=== PATIENT | male | born 2000 | race Caucasian/White ===

== ENCOUNTER 2023-12-16 13:19 | Emergency (ER) | payer BC, SELFPAY ==
--- NOTE | 2023-12-16 13:26 | ED.MALEGU ---
HPI - Male Genitourinary General Chief complaint: Urogenital-Male Stated complaint: UTI Time Seen by Provider: 12/16/23 13:28 Source: patient, RN notes reviewed and old records reviewed Mode of arrival: ambulatory Limitations: no limitations History of Present Illness HPI Narrative: 23-year-old male presents to the [facility] with concerns for a UTI. Patient reports bladder pain when he urinates, no burning, urgency or frequency with urination. Denies being sexually active, no concern for STDs Denies fevers, nausea, vomiting Presents with his father Has a history of acid reflux Onset (ago): day(s) Related Data Sexually active: No Home Medications Medication Instructions Recorded Confirmed pantoprazole 40 mg tablet,delayed 40 mg PO DAILY 12/16/23 12/16/23 release Allergies Allergy/AdvReac Type Severity Reaction Status Date / Time amoxicillin Allergy Intermediate Vomiting Verified 12/16/23 13:40 EYE DROPS Allergy Intermediate HIVES Uncoded 12/16/23 13:26 Review of Systems Review of Systems: All systems reviewed & are unremarkable except as noted in HPI and below Constitutional: Constitutional: Reports no additional constitutional complaints Eyes: Eyes: Reports no additional eye complaints ENT: Reports system reviewed and no additional complaints, except as documented Cardiovascular: Cardiovascular: Reports no additional cardiovascular complaints, Denies chest pain and Denies dyspnea Respiratory: Respiratory: Reports no additional respiratory complaints, Denies chest congestion, Denies cough and Denies dyspnea Gastrointestinal: Gastrointestinal: Reports no additional gastrointestinal complaints, Denies abdominal pain, Denies nausea and Denies vomiting Genitourinary: Genitourinary: Reports as per HPI Musculoskeletal: Musculoskeletal: Reports no additional musculoskeletal complaints Integumentary/Breasts: Skin/Breast: Reports system reviewed and no additional complaints, except as docu Neurologic: Reports system reviewed and no additional complaints, except as documented Psychiatric: Psychiatric: Reports no additional psychiatric complaints Allergic/Immunologic: Allergic/Immunologic: Reports no additional allergic/immunologic complaints [facility] Surgical History Surgical History Myringotomy tube status Family History Family History Father Depression Anxiety Alcohol abuse Grandparent Alcohol abuse Cancer Cerebrovascular accident Social History Social History Social History: caffeine coffee, tea and soda 1 cup per day Smoking status: Former smoker Alcohol intake: former Alcohol use details: previously--every 2 to 3 months have 3 to 5 shots Substance use: current Substance use type: marijuana Other substance usage details: edibles Last use: monday Lack of Transportation: No Lack of Food: Never True Current Housing: I Have Housing Concerned About Future Housing: No Difficulty Paying Gas/Electric Bills: No Difficulty Paying for Meds: No Currently Unemployed: YES Education: High School Diploma/GED Difficulty w/ Childcare or Family Care: No Living arrangements: with family Comments At the time of my signature, I reviewed and agree with the nursing past medical, surgical, social, and family history. There is no relevant family history pertinent to the patient complaint. Exam Const: General: cooperative, healthy appearing, comfortable, no acute distress, well developed, alert and well nourished Nutritional Appearance: well nourished Orientation/consciousness: patient oriented x3 Limitations: no limitations HENMT: Head: normal to inspection Ears: hearing grossly normal bilaterally and external ears normal Face/Nose/Sinus: Normal external nose present, Normal nares present, Normal nasal mucous m
[2023-12-16 13:28] VITALS: BP 128/80; PULSE 69; RESP 16; TEMP 37.1; O2SAT 100
[2023-12-16 13:50] LABS: EDUAAPPEAR Clear; EDUABILI Negative; EDUABLOOD Negative; EDUACOLOR1 Light/Pale; EDUAGLUCOSE Negative; EDUAKETONE Negative; EDUALEUKO Negative; EDUANITRATE Negative; EDUAPH 7.5; EDUAPROTEIN Negative; EDUASPGRAVITY 1.015; EDUAUROBILI 0.2
== END 2023-12-16 14:19 | disposition home or self-care (01) ==
PROVIDERS: Emergency Provider Nurse Practitioner; PCP Student in an Organized Health Care Education/Training Program
DX: R39.89 Other symptoms and signs involving the genitourinary system (principal); Z87.891 Personal history of nicotine dependence; F12.90 Cannabis use, unspecified, uncomplicated
CPT/HCPCS: 81003; 87086; 99213; G0463

== ENCOUNTER 2024-05-05 08:32 | Emergency (ER) | payer BC, SELFPAY ==
--- NOTE | 2024-05-05 08:36 | ED.GENADULT ---
HPI - General Adult General Chief complaint: Ear Stated complaint: Both Ears Irritation Time Seen by Provider: 05/05/24 08:43 Source: patient, RN notes reviewed and old records reviewed Mode of arrival: ambulatory Limitations: no limitations History of Present Illness HPI narrative: 23-year-old male presents to the [facility] with 5 day history of ear discomfort, ringing of his ears. Has taken Tylenol. No other treatment prior to arrival Related Data Home Medications Medication Instructions Recorded Confirmed pantoprazole 40 mg tablet,delayed 40 mg PO DAILY 12/16/23 05/05/24 release Allergies Allergy/AdvReac Type Severity Reaction Status Date / Time amoxicillin Allergy Intermediate Vomiting Verified 05/05/24 08:39 EYE DROPS Allergy Intermediate HIVES Uncoded 05/05/24 08:39 Review of Systems Review of Systems: All systems reviewed & are unremarkable except as noted in HPI and below Constitutional: Constitutional: Reports no additional constitutional complaints ENT: Reports as per HPI and Reports otalgia Cardiovascular: Cardiovascular: Reports no additional cardiovascular complaints, Denies chest pain and Denies dyspnea Respiratory: Respiratory: Reports no additional respiratory complaints, Denies chest congestion, Denies cough and Denies dyspnea Gastrointestinal: Gastrointestinal: Reports no additional gastrointestinal complaints, Denies abdominal pain, Denies nausea and Denies vomiting Musculoskeletal: Musculoskeletal: Reports no additional musculoskeletal complaints Integumentary/Breasts: Skin/Breast: Reports system reviewed and no additional complaints, except as docu PMFSH Surgical History Surgical History Myringotomy tube status Family History Family History Father Depression Anxiety Alcohol abuse Grandparent Alcohol abuse Cancer Cerebrovascular accident Social History Social History Social History: caffeine coffee, tea and soda 1 cup per day Smoking status: Former smoker Alcohol intake: former Alcohol use details: previously--every 2 to 3 months have 3 to 5 shots Substance use: current Substance use type: marijuana Other substance usage details: edibles Last use: monday Lack of Transportation: No Lack of Food: Never True Current Housing: I Have Housing Concerned About Future Housing: No Difficulty Paying Gas/Electric Bills: No Difficulty Paying for Meds: No Currently Unemployed: YES Education: High School Diploma/GED Difficulty w/ Childcare or Family Care: No Living arrangements: with family Comments At the time of my signature, I reviewed and agree with the nursing past medical, surgical, social, and family history. There is no relevant family history pertinent to the patient complaint. Exam Const: General: cooperative, healthy appearing, comfortable, no acute distress, well developed, alert and well nourished Nutritional Appearance: well nourished Orientation/consciousness: patient oriented x3 Limitations: no limitations HENMT: Head: normal to inspection Ears: hearing grossly normal bilaterally, external ears normal and TM abnormal bulging on the right, wth effusion serous (right TM slightly pink in color ) bilateral and scarred bilateral Face/Nose/Sinus: Normal external nose present, normal facial exam and face symmetric Face and sinus: normal facial exam and face symmetric Mouth: Yes Normal oral and palatal mucosa present, Yes lip normal and Yes tongue normal Throat: posterior oropharynx normal, uvula midline and no uvular edema Eyes: General: appearance normal, both eyes and all related structures Alignment and Position: alignment normal Periorbital: periorbital findings normal Neck: Neck: normal visual inspection, full ROM, no lymphadenopathy and no meningeal signs Chest: Chest palpation & inspection: normal inspection of the chest Resp: Effort & Inspection: normal respiratory effort and able to speak in complete sentences Cardio: Rate: regular rate Skin: General skin exam: normal color and no rashes or lesions noted Lesions: no lesions Rashes: no rashes Wounds: no wounds Neuro: General: patient oriented x3, gait normal, tone normal, moves all extremities and no meningeal signs Cognition (Neuro): normal cognition Speech: normal speech Gait exam (Neuro): Normal gait present Extrem: General: normal to inspection, full ROM, capillary refill normal and normal gait Psych: Appearance: grossly normal and well kempt Mental Status: mental status grossly normal Speech and movement: Normal speech and movement present and Clear speech present Affect: normal affect Attitude: cooperative Course Course Level of Care: Express Care Visit Vital Signs Vital signs: Vital Signs Temperature 98.5 F 05/05/24 08:45 Pulse Rate 78 05/05/24 08:45 Respiratory Rate 18 05/05/24 08:45 Blood Pressure 126/81 05/05/24 08:45 Pulse Oximetry 99 05/05/24 08:45 Oxygen Delivery Room Air 05/05/24 08:45 Temperature 98.5 F 05/05/24 08:45 Pulse Rate 78 05/05/24 08:45 Respiratory Rate 18 05/05/24 08:45 Blood Pressure 126/81 05/05/24 08:45 Pulse Oximetry 99 05/05/24 08:45 Oxygen Delivery Room Air 05/05/24 08:45 Reviewed Medical Decision Making MDM Narrative Medical decision making narrative: Patient sitting comfortably in exam room. Nontoxic, vitals stable. Patient in no acute distress Patient presents for 5 day history of bilateral ear discomfort Clear fluid noted on left, slightly bulging. Right pink to clear fluid noted, possible early infection, will treat Patient appropriate for outpatient treatment with close Discharge instructions reviewed with patient, as well as provided in writing per nursing staff. The instructions also include specific and strict return/GO TO THE ER as well as f/u information. All questions have been answered, and the patient deny any further questions with discharge and discharge plan. Some parts of this dictation were generated by voice recognition software and may contain typographical and/or grammatical inaccuracies. Differential Diagnosis Differential Diagnosis: Serous otitis, otitis media otitis externa, URI Medical Records Medical records reviewed: Yes I reviewed the external patient's medical records. Vital Signs Vital Signs: Vital Signs Temperature 98.5 F 05/05/24 08:45 Pulse Rate 78 05/05/24 08:45 Respiratory Rate 18 05/05/24 08:45 Blood Pressure 126/81 05/05/24 08:45 Pulse Oximetry 99 05/05/24 08:45 Oxygen Delivery Room Air 05/05/24 08:45 Temperature 98.5 F 05/05/24 08:45 Pulse Rate 78 05/05/24 08:45 Respiratory Rate 18 05/05/24 08:45 Blood Pressure 126/81 05/05/24 08:45 Pulse Oximetry 99 05/05/24 08:45 Oxygen Delivery Room Air 05/05/24 08:45 Reviewed Lab Data Lab results reviewed: Yes I reviewed the patient's lab results. Labs: Reviewed Critical Care Time Critical Care Time Critical Care Time: No Discharge Plan Discharge Clinical Impression: Acute right otitis media Acute serous otitis media of left ear Qualifiers: Recurrence: not specified as recurrent Qualified Code(s): H65.02 - Acute serous otitis media, left ear Patient Disposition: Home, Self-Care Condition: Stable Instructions: Antibiotic Form, Ear Infection (AC), Fluid In The Ear (Serous Otitis Media) (ED) Additional Instructions: -Alternate Tylenol and Motrin per package directions for fever or pain. You can alternate every 4 hours -Antihistamine medication such as Benadryl at night and Zyrtec/Claritin/Мария during the day can help improve symptoms. -doing daily nasal irrigations can help relieve pressure your sinuses. Things like a Neti pot -Use Flonase twice a day for 5-7 days then daily to help reduce the inflammation -You can also use Mucinex. Be sure to drink plenty of water with this medication at least 8 ounces with every dose and it is important to drink 8 to 10 glasses of water per day. Water is a natural decongestant -Frequent hand washing or hand rn field case manager is one of the best ways to prevent spread of infection. -Using a vaporizer or humidifier at night will also help thin secretions and help with coughing up phlegm. -Follow up with primary care provider in 7-10 days if condition is not improving - For new or worsening symptoms go directly to the nearest ER Patient Language: Tamazight Prescriptions: New azithromycin 250 mg tablet See Rx Instructions .ROUTE .COMPLEX Qty: 6 0RF Rx Instructions: For 250 mg dose pack: take 500 mg today (day 1), then 250 mg for 4 days (days 2-5) No Action pantoprazole 40 mg tablet,delayed release (DR/EC) 40 mg PO DAILY Follow-up/Referrals: Tom,DO Patel [Primary Care Provider] - 1 Week (express care follow up ) Stand Alone Forms: Work/School Release IP Time of Disposition: 08:50
[2024-05-05 08:45] VITALS: BP 126/81; PULSE 78; RESP 18; TEMP 36.9; O2SAT 99
== END 2024-05-05 08:55 | disposition home or self-care (01) ==
PROVIDERS: Emergency Provider Nurse Practitioner; PCP Student in an Organized Health Care Education/Training Program
DX: H66.91 Otitis media, unspecified, right ear (principal); H65.02 Acute serous otitis media, left ear; Z87.891 Personal history of nicotine dependence
CPT/HCPCS: 99213; G0463